=== PATIENT | female | born 1995 | race Hispanic/Latino ===

== ENCOUNTER 2025-01-19 06:27 | Emergency (ER) | payer BC ==
[~2025-01-19] VITALS: Ht 165.1 cm; Wt 68.0 kg
--- NOTE | 2025-01-19 06:59 | ERN ---
General Chief Complaint: Palpitations Stated Complaint: PALPITATIONS Time Seen by MD: 06:32 Source: patient History of Present Illness Initial Comments Patient is a 29-year-old female coming in complaining of palpitations. Patient states that this started yesterday she took her trazodone earlier in the night she started feeling chest pressure decided come in for further evaluation. Allergies: Coded Allergies: No Known Drug Allergies (Unverified Allergy, Unknown, 01/19/25) Past Medical History Past Medical History: Anemia, Anxiety Past Surgical History: None Female( History) LMP: Dec 13, 2024 ROS Dictation CONSTITUTIONAL: No chills, no fever, no weakness, no diaphoresis, no malaise. HEAD/FACE: No signs of trauma. EENT: No eye pain, no blurred vision, no tearing, no double vision, no ear pain, no ear discharge, no nose pain, no nasal congestion, no throat pain, no throat swelling, no mouth pain. RESPIRATORY: No cough, no orthopnea, no SOB, no stridor, no wheezing. CARDIOVASCULAR: chest pain, no edema, no palpitations, no syncope. GASTROINTESTINAL/ABDOMINAL: No abdominal pain, no constipation, no diarrhea, no nausea, no vomiting. GENITOURINARY: No abnormal discharge, no dysuria, no frequent urination, no hematuria. No complaints of pain in the genitals. MUSCULOSKELETAL: No back pain, no gout, no joint pain, no joint swelling, no muscle pain, no muscle stiffness, no neck pain. INTEGUMENTARY: No change in color, no change in hair/nails, no dryness, no lesion, no lumps, no rash. NEUROLOGICAL/PSYCH: No anxiety, not depressed, no emotional problem, no headache, no numbness, no pre-existing deficit, no history of seizures, no tremors, no weakness. HEMATOLOGIC/LYMPHATIC: Not anemic, no history of blood clots, no apparent bleeding, no bruising, glands not swollen. All Systems Negative, Except as Noted. Physical Exam Physical Exam Dictation VITAL SIGNS: Reviewed. GENERAL APPEARANCE: Alert, oriented x3, no acute distress, obese. HEAD AND FACE: Non-traumatic. EYES: PERRL, pink conjunctivas, eyelid no trauma, anterior chamber clear. EARS: Pinnas intact and no signs of trauma or erythema. Ear canals clear and no discharge. TMs no erythema. NOSE: No discharge, no bleeding. OROPHARYNX: Mouth normal, teeth no caries, tongue pink. Pharynx clear, no erythema. Tonsils no exudates, no abscesses noted. Mucous membrane moist. NECK: Supple, non-tender, no thyromegaly, no masses, no JVD, no bruits. BREAST: Deferred. CHEST: No tenderness, no crepitus, no paradoxical movement, no retractions. LUNGS: Clear, well-ventilated, symmetric, no rales, no wheezing, no rhonchi, no stridor, good breath sounds bilaterally. HEART: Regular rate, regular rhythm, no murmur, no gallops. VASCULAR: No peripheral edema. ABDOMEN: Soft, positive bowel sounds, nondistended, no guarding, nontender, no rebound, no masses no hepatomegaly, no splenomegaly, no Butterfield's sign, no hernias. RECTAL: Deferred. GENITAL: Deferred. NEUROLOGICAL: Normal speech, gross motor function intact, gross sensory function intact. MUSCULOSKELETAL: Neck nontender, full range of motion, back nontender, full range of motion. EXTREMITIES: Nontender, full range of motion. SKIN: Color pink, dry, no turgor, no rash, no lacerations, no abrasions, no contusions. LYMPHATICS: Deferred. Results Laboratory and Microbiology Lab and Micro Result Laboratory Tests Test 01/19/25 06:37 01/19/25 07:51 Urine Color YELLOW (YELLOW) Urine Appearance CLEAR (CLEAR) Urine pH 5.5 (5.0-8.0) Urine Specific [place] 1.029 (1.001-1.031) Urine Protein 10 mg/dL (NEGATIVE) H Urine Glucose (UA) NEGATIVE mg/dL (NEGATIVE) Urine Ketones NEGATIVE mg/dL (NEGATIVE) Urine Occult Blood MODERATE (NEGATIVE) H Urine Nitrate NEGATIVE (NEGATIVE) Urine Bilirubin NEGATIVE mg/dL (NEGATIVE) Urine Urobilinogen 0.2 mg/dL (0.2-1.0) Urine Leukocyte Esterase NEGATIVE [place]/uL Urine RBC 11-25 /HPF (0-1) H Urine WBC 2-5 /HPF (0-1) H Urine Squamous Epithelial Cells MOD /HPF (0-2) Urine Bacteria None /HPF (None Seen) Urine HCG, Qualitative NEGATIVE (NEGATIVE) Urine Opiates Screen NEGATIVE (NEGATIVE) Urine Barbiturates Screen NEGATIVE (NEGATIVE) Urine Phencyclidine Screen NEGATIVE (NEGATIVE) Urine Amphetamines Screen NEGATIVE (NEGATIVE) Urine Benzodiazepines Screen NEGATIVE (NEGATIVE) Urine Cocaine Screen NEGATIVE (NEGATIVE) Urine Marijuana (THC) Screen NEGATIVE (NEGATIVE) White Blood Count 8.0 K/uL (4.8-10.8) Red Blood Count 4.41 MIL/uL (4.00-5.50) Hemoglobin 13.8 g/dL (12.0-16.0) Hematocrit 39.3 % (36-48) Mean Corpuscular Volume 89.1 fL (79-99) Mean Corpuscular Hemoglobin 31.3 pg (27.0-33.0) Mean Corpuscular Hemoglobin Concent 35.1 g/dL (32.0-36.0) Red Cell Distribution Width 12.1 % (11.0-15.5) Platelet Count 342 K/uL (130-400) Mean Platelet Volume 9.8 fL (7.5-10.5) Immature Granulocyte % (Auto) 0.3 % (0-1) Neutrophils (%) (Auto) 64.6 % (40.0-77.0) Lymphocytes (%) (Auto) 25.3 % (21.0-51.0) Monocytes (%) (Auto) 5.8 % (3.0-13.0) Eosinophils (%) (Auto) 3.4 % (0.0-8.0) Basophils (%) (Auto) 0.6 % (0.0-5.0) Neutrophils # (Auto) 5.2 K/uL (1.8-7.7) Lymphocytes # (Auto) 2.0 K/uL (1.0-4.8) Monocytes # (Auto) 0.5 K/uL (0.1-1.0) Eosinophils # (Auto) 0.27 K/uL (0.00-0.70) Basophils # (Auto) 0.05 K/uL (0.00-0.20) Absolute Immature Granulocyte (auto 0.02 K/uL (0-1) Nucleated Red Blood Cells 0.0 % (0.0-0.19) Sodium Level 140 mmol/L (136-145) Potassium Level 4.2 mmol/L (3.5-5.1) Chloride Level 103 mmol/L (101-111) Carbon Dioxide Level 28 mmol/L (21-32) Blood Urea Nitrogen 11 mg/dL (7-18) Creatinine 0.6 mg/dL (0.5-1.0) Glomerular Filtration Rate Calc 125 mL/min (>90) Random Glucose 96 mg/dL (70-105) Total Calcium 9.0 mg/dL (8.5-10.1) Magnesium Level 2.00 mg/dL (1.80-2.40) Total Creatine Kinase 51 U/L (21-232) Troponin I High Sensitivity < 4 ng/L (4-50) L Labs Reviewed?: Yes EKG/XRAY/US/CT/MRI EKG Comment 01/19/2025 time 6:41 a.m. Ventricular rate 94 Sinus rhythm [place] [address] wave elevation or depression MDM MDM: Differential diagnosis: Rationale: Tests considered and ordered secondary to shared decision making include: Previous outside records reviewed: Old ER visits. Risk of complication and/or morbidity or mortality of patient management: None Medications-Per medication reconciliation Need for hospitalization: Patient does not meet criteria for hospitalization. Need for emergency major/minor surgery: No There are no social concerns with this patient. Prescription drug management Prescriptions will include symptomatic care Patient's prior external medical records from other ER visits were reviewed by me as indicated. Prior testing and results from previous visits were reviewed. Prior tests were taken into account with medical decision making and resource utilization, independent historian/historians were used to obtain complete medical history. I independently interpreted the test that were performed, results were reviewed by me and considered findings on radiology if ordered. Medical management and examination interpretation discussions were had by me with other qualified healthcare professionals as indicated for the patient's care. Patient handed off change pending re-evaluation and labs which were all negative, spoke to patient and examined her she is in no acute distress no independent risk factors for pulmonary emboli and advised to hold off on trazodone until seen her doctor for repeat evaluation patient on sinus rhythm heart rate in the 80s to 90s ED Course Orders Procedure Category Date Status Time Urinalysis Profile LAB 01/19/25 Complete 06:39 ,Urine Test LAB 01/19/25 Complete 06:39 Drug Screen Urine LAB 01/19/25 Complete 06:45 Cbc With Differential LAB 01/19/25 Complete 06:49 Chest 1vw RAD 01/19/25 Resulted 06:49 12 Lead Ekg Tracing- EKG 01/19/25 Logged Technical 06:49 Magnesium LAB 01/19/25 Complete 06:49 Creatine Kinase, Total LAB 01/19/25 Complete 06:49 Troponin I High LAB 01/19/25 Complete Sensitivity 06:49 Basic Metabolic Panel LAB 01/19/25 Complete 06:49 12 Lead Ekg Tracing- EKG 01/19/25 Logged Technical 06:49 0.9%Nacl 1000ml (Ns PHA 01/19/25 Complete 1000ml) 07:30 Current Medications Medications (Trade) Dose Ordered Sig/Candy Route PRN Reason Start Time Stop Time Status Last Admin Dose Admin Sodium Chloride 1,000 ml @ 0 mls/hr ONCE ONCE IV 01/19/25 07:30 01/19/25 07:31 DC Vital Signs Date Time Temp Pulse Resp B/P (MAP) Pulse Ox O2 Delivery O2 Flow Rate FiO2 01/19/25 08:16 98.2 74 19 112/75 98 Room Air* 0 01/19/25 06:46 98.4 110 18 148/75 98 Room Air* 0 01/19/25 06:29 98.4 105 18 133/80 98 Room Air 0 DX & DISP Disposition: Discharge Departure Impression: Primary Impression: Palpitations Condition: Stable Referrals: JAELYN LOZADA MD (PCP) NAJMA KAUR MD Jan 19, 2025 06:59 NICHOLAS RODRIGUES MD Jan 19, 2025 09:39
[2025-01-19 07:00] LABS: AMPHET/METH SCREEN,URINE NEGATIVE (NEGATIVE); BARBITURATE SCREEN, URINE NEGATIVE (NEGATIVE); CANNABINOID SCREEN,URINE NEGATIVE (NEGATIVE); COCAINE SCREEN,URINE NEGATIVE (NEGATIVE)
[2025-01-19 07:17] LABS: APPEARANCE,URINE CLEAR (CLEAR); GLUCOSE, URINE (UA) NEGATIVE (NEGATIVE); LEUKOCYTE ESTERASE ,URINE NEGATIVE Leu/uL (NEGATIVE); NITRATE,URINE NEGATIVE (NEGATIVE); OCCULT BLOOD,URINE MODERATE (NEGATIVE)
[2025-01-19 07:20] LABS: ADD UA MICROSCOPIC YES
[2025-01-19 07:22] LABS: SQUAMOUS EPITHELIAL CELL,UR MOD /HPF (0-2)
[2025-01-19] MEDS ORDERED: 0.9%NACL 1000ML 1,000 ML IV ONE (07:30)
[2025-01-19 07:59] LABS: IMMATURE GRANULOCYTE ABSOLUTE 0.02 K/uL (0-1); NUCLEATED RED BLOOD CELLS 0.0 % (0.0-0.19); PLATELET COUNT (AUTO) 342 K/uL (130-400); RED BLOOD CELL COUNT(AUTO) 4.41 MIL/uL (4.00-5.50); RED CELL DISTRIBUTION WIDTH 12.1 % (11.0-15.5); WHITE BLOOD COUNT (AUTO) 8.0 K/uL (4.8-10.8)
--- NOTE | 2025-01-19 08:09 | HMCIMG ---
EXAM: CR Chest, single view. CLINICAL HISTORY: Chest pain. COMPARISON: None provided. FINDINGS: The lungs show no infiltrate or other acute findings. No pleural effusion or pneumothorax. The cardiomediastinal silhouette is within normal limits. No acute osseous abnormality. IMPRESSION: No acute cardiopulmonary pathology is evident. /[place]
[2025-01-19 08:14] LABS: CREATININE 0.6 mg/dL (0.5-1.0); GLOMERULAR FILTR. RATE CALC 125.0 mL/min (>90); GLUCOSE,RANDOM 96.0 mg/dL (70-105); SODIUM SERUM 140.0 mmol/L (136-145); UREA NITROGEN, BLOOD 11.0 mg/dL (7-18)
[2025-01-19 08:19] LABS: CREATINE KINASE, TOTAL 51.0 U/L (21-232)
[2025-01-19 09:50] VITALS: BP 116/82; PULSE 83; RESP 18; TEMP 98.3; O2SAT 98
--- NOTE | 2025-01-20 10:55 | EKG ---
[facility] Test Date: 2025-01-19 Test Time: 06:41:10 Pat Name: LUANN SHAIKH Department: [facility] Room: Gender: F [employer] Finisher: [birth year] : 1995 Requested By: NICHOLAS RODRIGUES Order Number: [id number] Reading MD: Tim Lanza Measurements Intervals [place] Rate: 94 P: 45 [place]: 141 QRS: 130 QRSD: 99 T: 37 QT: 354 QTc: 443 Interpretive Statements Sinus rhythm Right axis deviation No previous ECG available for comparison Electronically Signed On 01-20-2025 16:10:29 CDT by Tim Lanza Please click the below link to view image of tracing.
== END 2025-01-19 09:49 | disposition home or self-care (01) ==
LOC: EDH 06:27
DX: R00.2 Palpitations (principal); F41.9 Anxiety disorder, unspecified
CPT/HCPCS: 36415; 71045; 80048; 80305; 81001; 81025; 82550; 83735; 84484; 85025; 93005; 99284